=== PATIENT | female | born 1950 | race Caucasian/White ===

== ENCOUNTER 2024-04-09 09:51 | Inpatient (IN) | payer MEDICARE, MEDICAID ==
[~2024-04-09] VITALS: Ht 182.9 cm; Wt 140.0 kg
[2024-04-09] VITALS (11 sets, daily range): BP systolic 128–167; BP diastolic 43–54; PULSE 55–74; RESP 10–16; TEMP 96.3–97.8; O2SAT 94–98
[2024-04-09] MEDS ORDERED: mag hydrox/Alum hydrox/simeth 30ml oral suspension PO PRN (11:35)
[2024-04-09] MEDS ORDERED: magnesium sulf-water 2g/50mL 50 ML IV PRN (11:35)
[2024-04-09] MEDS ORDERED: potassium Cl 20 mEq SR tablet PO PRN ×2 (11:35)
[2024-04-09] MEDS ORDERED: magnesium Cl slow-release 64mg tablet PO PRN (11:35)
[2024-04-09] MEDS ORDERED: potassium Cl 40MEQ/1/2NS 520ml 520 ML IV PRN (11:35)
[2024-04-09] MEDS ORDERED: magnesium sulf-water 4G/100mL 100 ML IV PRN (11:35)
[2024-04-09] MEDS ORDERED: magnesium hydroxide 30ml (MOM) UD suspension PO PRN (11:35)
[2024-04-09] MEDS ORDERED: acetaminophen 325mg tablet PO PRN (11:35)
[2024-04-09 11:45] LABS: PRO BRAIN NATRIURETIC PEPTIDE 13940 PG/ML (0-125)
[2024-04-09 11:53] LABS: BILIRUBIN,URINE NEGATIVE (Neg); CLARITY,URINE TURBID (Clear); COLOR,URINE YELLOW (Yellow); GLUCOSE, URINE 100 mg/dl (Neg); KETONES,URINE NEGATIVE (Neg); LEUKOCYTE ESTERASE ,URINE MODERATE (Neg); NITRITES, URINE POSITIVE (Neg); OCCULT BLOOD,URINE LARGE (Neg); PROTEIN,URINE 100 mg/dl (Neg); UROBILINOGEN,URINE 0.2 E.U/dL (0.2-1.0)
[2024-04-09 12:13] LABS: ALANINE AMINOTRANSFERASE 12 U/L (12-78); ALBUMIN 3.1 G/DL (3.4-5.0); ALBUMIN/GLOBULIN RATIO 0.7 (1.1-1.5); ALKALINE PHOSPHATASE 63 IU/L (46-116); ANION GAP 9 (8-16); ASPARTATE AMINO TRANSFERASE 15 U/L (10-37); BILIRUBIN,TOTAL 0.4 MG/DL (0.1-1.0); BLOOD UREA NITROGEN 49 MG/DL (7-18); BUN/CREATININE RATIO 6.8 (10.0-20.0); CALCIUM 8.9 MG/DL (8.5-10.1); CHLORIDE 95 MMOL/L (99-107); CREATININE 7.25 MG/DL (0.40-0.90); GLUCOSE 213 MG/DL (70-104); POTASSIUM 4.6 MMOL/L (3.5-5.1); SODIUM 133 MMOL/L (135-145); TOTAL CARBON DIOXIDE 29.5 MMOL/L (24-32); TOTAL PROTEIN 7.6 G/DL (6.4-8.2); eCRCL 8 ML/MIN; eGFR 6 ML/MIN
[2024-04-09 12:13] LABS: UA COLLECTION TYPE STRAIGHT CATH
[2024-04-09 12:16] LABS: BACTERIA,URINE 2+ /HPF (Neg); RBC,URINE TNTC /HPF (0-2); WBC CLUMPS,URINE MANY /HPF (NEGATIVE); WBC,URINE TNTC /HPF (0-4)
[2024-04-09 12:18] LABS: SQUAMOUS EPITHELIAL CELL,UR NONE SEEN /LPF (FEW)
[2024-04-09 12:29] LABS: BASOPHILS % (AUTO) 0.5 % (0-1); EOSINOPHILS % (AUTO) 0.6 % (0-6); HEMATOCRIT 30.3 % (35.0-45.0); HEMOGLOBIN 9.9 g/dl (12.0-16.0); LYMPHOCYTES # (AUTO) 1.1 X10'3 (1.1-4.8); LYMPHOCYTES % (AUTO) 14.2 % (21-51); MEAN CORPUSCULAR HEMOGLOBIN 30.6 PG (27.0-31.0); MEAN CORPUSCULAR HGB CONC 32.6 g/dL (33.0-36.5); MEAN CORPUSCULAR VOLUME 93.8 FL (78-98); MONOCYTES # (AUTO) 0.7 X10'3 (0-0.9); MONOCYTES % (AUTO) 8.8 % (2-12); NEUTROPHILS # (AUTO) 5.9 X10'3 (1.8-7.7); NEUTROPHILS % (AUTO) 75.9 % (42-75); PLATELET COUNT 222 X10'3 (140-440); RED BLOOD COUNT 3.23 X10'6 (4.20-5.60); RED CELL DISTRIBUTION WIDTH 14.3 % (11.5-14.5); WHITE BLOOD COUNT 7.8 X10'3 (4.5-11.0)
[2024-04-09] MEDS ORDERED: glucagon, human recombinant 1mg kit SUBCUT PRN (13:00)
[2024-04-09] MEDS ORDERED: dextrose 50%-water 50ml dispensing syringe IV PRN ×2 (13:00)
[2024-04-09] MEDS ORDERED: DEXTROSE 15 GM of carb/4 tabs (each vial/BOTTLE has 4 tablets) PO PRN ×2 (13:00)
[2024-04-09 13:44] LABS: HEMOGLOBIN A1C 6.4 % (4.5-6.2)
[2024-04-09] MEDS ORDERED: vancomycin/NS 1 GM ADD-VANTAGE 250 ML X 1 DOSE IV PRN (14:15)
[2024-04-09] MEDS: cefepime 2g/NS 100ml ADVANTAGE 100 ML IV SCH (14:34)
[2024-04-09] MEDS ORDERED: PHO667C PO (14:55)
[2024-04-09] MEDS ORDERED: OMEP40CA21 PO (14:55)
[2024-04-09] MEDS ORDERED: LORA10TA7 PO (14:55)
[2024-04-09] MEDS ORDERED: SYN0.088T PO (14:55)
[2024-04-09] MEDS ORDERED: INSU100V12 SQ (14:55)
[2024-04-09] MEDS ORDERED: FOLI0.8T22 PO (14:55)
[2024-04-09] MEDS ORDERED: FURO-150 PO (14:55)
[2024-04-09] MEDS ORDERED: HYDR-3965 PO (14:55)
[2024-04-09] MEDS ORDERED: FOLI0.4T14 PO (14:55)
[2024-04-09] MEDS ORDERED: CETI10TA15 PO (14:55)
[2024-04-09] MEDS ORDERED: CRAN250C2 PO (14:55)
[2024-04-09] MEDS ORDERED: LIRA0.6P SUBCUT (14:55)
[2024-04-09] MEDS ORDERED: CITA20TA28 PO (14:55)
[2024-04-09] MEDS ORDERED: LEVO112C4 PO (14:55)
[2024-04-09] MEDS ORDERED: OMEG100037 PO (14:55)
[2024-04-09] MEDS ORDERED: ATOR40TA72 PO (14:55)
[2024-04-09] MEDS ORDERED: WARF1TAB83 PO (14:56)
[2024-04-09] MEDS ORDERED: albumin (human) 25% 100ml IV 100 ML IV PRN (15:25)
[2024-04-09] MEDS: INSULIN LISPRO 100 UNIT/ML INSULN.PEN MULTI-DOSE SQ SCH (17:00)
[2024-04-09] MEDS: heparin 1,000unit/ml 10ml vial 10 ML IV ONE (17:00)
[2024-04-09] MEDS: EPOETIN ALFA-EPBX 20,000 UNIT/ML 1 ML MDV IV ONE (17:01)
[2024-04-09] MEDS: heparin 1,000 units/ml 10ml inj IV ONE (17:01)
[2024-04-09] MEDS: K and/or MAG REPLACEMENT MC SCH (20:00)
[2024-04-09 21:57] LABS: % IRON SATURATION 16 % (11-46); IRON 31 UG/DL (49-151); TOTAL IRON BINDING CAPACITY 199 UG/DL (259-388)
[2024-04-09] MEDS: morphine 2 MG/ML inj. syringe IV PRN (22:01)
[2024-04-09] MEDS: docusate sod 100mg capsule PO SCH (22:03)
[2024-04-09] MEDS: insulin glargine (Lantus) pen - multi-dose SQ SCH (22:04)
[2024-04-10] VITALS (8 sets, daily range): BP systolic 120–155; BP diastolic 49–76; PULSE 76–83; RESP 14–18; TEMP 97–98.9; O2SAT 92–95
[2024-04-10] MEDS: VANCOMYCIN LEVEL IV SCH (04:00)
[2024-04-10 04:41] LABS: BASOPHILS # (AUTO) 0.1 X10'3 (0-0.2); BASOPHILS % (AUTO) 0.9 % (0-1); EOSINOPHILS # (AUTO) 0.2 X10'3 (0-0.9); EOSINOPHILS % (AUTO) 2.4 % (0-6); HEMATOCRIT 28.1 % (35.0-45.0); HEMOGLOBIN 9.4 g/dl (12.0-16.0); LYMPHOCYTES # (AUTO) 1.4 X10'3 (1.1-4.8); LYMPHOCYTES % (AUTO) 22.1 % (21-51); MEAN CORPUSCULAR HEMOGLOBIN 31.2 PG (27.0-31.0); MEAN CORPUSCULAR HGB CONC 33.4 g/dL (33.0-36.5); MEAN CORPUSCULAR VOLUME 93.4 FL (78-98); MEAN PLATELET VOLUME 8.1 FL (7.4-10.4); MONOCYTES # (AUTO) 0.6 X10'3 (0-0.9); MONOCYTES % (AUTO) 10.2 % (2-12); NEUTROPHILS # (AUTO) 4.1 X10'3 (1.8-7.7); NEUTROPHILS % (AUTO) 64.4 % (42-75); PLATELET COUNT 220 X10'3 (140-440); RED BLOOD COUNT 3.01 X10'6 (4.20-5.60); RED CELL DISTRIBUTION WIDTH 14.3 % (11.5-14.5); WHITE BLOOD COUNT 6.3 X10'3 (4.5-11.0)
[2024-04-10 04:46] LABS: ALANINE AMINOTRANSFERASE 11 U/L (12-78); ALBUMIN 2.6 G/DL (3.4-5.0); ALBUMIN/GLOBULIN RATIO 0.7 (1.1-1.5); ALKALINE PHOSPHATASE 52 IU/L (46-116); ANION GAP 7 (8-16); ASPARTATE AMINO TRANSFERASE 9 U/L (10-37); BILIRUBIN,TOTAL 0.3 MG/DL (0.1-1.0); BLOOD UREA NITROGEN 30 MG/DL (7-18); BUN/CREATININE RATIO 6.4 (10.0-20.0); CALCIUM 8.6 MG/DL (8.5-10.1); CHLORIDE 98 MMOL/L (99-107); GLUCOSE 176 MG/DL (70-104); MAGNESIUM 1.8 MG/DL (1.5-2.4); POTASSIUM 4.4 MMOL/L (3.5-5.1); SODIUM 135 MMOL/L (135-145); TOTAL CARBON DIOXIDE 29.7 MMOL/L (24-32); TOTAL PROTEIN 6.4 G/DL (6.4-8.2); VANCOMYCIN,RANDOM 7.7 ug/mL (20.0-30.0); eCRCL 12 ML/MIN; eGFR 9 ML/MIN
[2024-04-10] MEDS: vancomycin/NS 1 GM ADD-VANTAGE 250 ML X 1 DOSE IV ONE (06:03)
[2024-04-10] MEDS: vancomycin inj 500 MG in normal saline 100ml IV soln 100 ML IV SCH (09:38)
[2024-04-10] MEDS: ondansetron/PF 4mg/2ml inj IV PRN (16:47)
[2024-04-11] VITALS (12 sets, daily range): BP systolic 137–167; BP diastolic 52–71; PULSE 65–77; RESP 15–18; TEMP 97.9–98.4; O2SAT 95–98
[2024-04-11 06:06] LABS: BASOPHILS % (AUTO) 0.7 % (0-1); EOSINOPHILS # (AUTO) 0.3 X10'3 (0-0.9); EOSINOPHILS % (AUTO) 3.9 % (0-6); HEMOGLOBIN 9.3 g/dl (12.0-16.0); LYMPHOCYTES # (AUTO) 1.2 X10'3 (1.1-4.8); MEAN CORPUSCULAR HEMOGLOBIN 31.4 PG (27.0-31.0); MEAN CORPUSCULAR HGB CONC 33.3 g/dL (33.0-36.5); MEAN CORPUSCULAR VOLUME 94.3 FL (78-98); MEAN PLATELET VOLUME 8.4 FL (7.4-10.4); MONOCYTES # (AUTO) 0.6 X10'3 (0-0.9); MONOCYTES % (AUTO) 9.5 % (2-12); NEUTROPHILS # (AUTO) 4.4 X10'3 (1.8-7.7); NEUTROPHILS % (AUTO) 66.9 % (42-75); PLATELET COUNT 221 X10'3 (140-440); RED BLOOD COUNT 2.97 X10'6 (4.20-5.60); RED CELL DISTRIBUTION WIDTH 14.5 % (11.5-14.5); WHITE BLOOD COUNT 6.5 X10'3 (4.5-11.0)
[2024-04-11 06:16] LABS: ALANINE AMINOTRANSFERASE 16 U/L (12-78); ALBUMIN 2.4 G/DL (3.4-5.0); ALBUMIN/GLOBULIN RATIO 0.6 (1.1-1.5); ALKALINE PHOSPHATASE 49 IU/L (46-116); ANION GAP 9 (8-16); ASPARTATE AMINO TRANSFERASE 11 U/L (10-37); BILIRUBIN,TOTAL 0.3 MG/DL (0.1-1.0); BLOOD UREA NITROGEN 47 MG/DL (7-18); BUN/CREATININE RATIO 7.1 (10.0-20.0); CALCIUM 8.4 MG/DL (8.5-10.1); CHLORIDE 98 MMOL/L (99-107); CREATININE 6.58 MG/DL (0.40-0.90); GLUCOSE 199 MG/DL (70-104); MAGNESIUM 1.8 MG/DL (1.5-2.4); POTASSIUM 4.6 MMOL/L (3.5-5.1); SODIUM 132 MMOL/L (135-145); TOTAL CARBON DIOXIDE 24.7 MMOL/L (24-32); TOTAL PROTEIN 6.3 G/DL (6.4-8.2); eCRCL 9 ML/MIN; eGFR 6 ML/MIN
[2024-04-11] MEDS: cefTAZidime 1 GM/NS 100ML IVPB 100 ML IV SCH (07:35)
[2024-04-11] MEDS: EPOETIN ALFA-EPBX 20,000 UNIT/ML 1 ML MDV IV ONE (11:32)
[2024-04-11] MEDS: heparin 1,000unit/ml 10ml vial 10 ML IV ONE (11:34)
[2024-04-11] MEDS: heparin 1,000 units/ml 10ml inj IV ONE (11:40)
[2024-04-11 13:27] LABS: INR 1.8 INR; PROTHROMBIN TIME 18.4 SECONDS (9.0-12.0)
[2024-04-11] MEDS ORDERED: APIX5TAB3 PO (13:37)
[2024-04-12 05:23] LABS: HBSAG SCREEN Negative (Negative)
[2024-04-13] MEDS ORDERED: VANCOMYCIN LEVEL IV SCH (03:00)
== END 2024-04-11 16:31 | disposition home or self-care (01) | DRG 690 ==
LOC: ER 09:52 → ED HOLD 11:37 → PCU 3S 15:45
PROVIDERS: ADMIT Internal Medicine; ATTEND Internal Medicine
PROC: 5A1D70Z Performance of Urinary Filtration, Intermittent, Less than 6 Hours Per Day (ICD-10-PCS; principal; 2024-04-09)
PROC: 5A1D70Z Performance of Urinary Filtration, Intermittent, Less than 6 Hours Per Day (ICD-10-PCS; 2024-04-11)
DX: N10 Acute pyelonephritis (principal); Z68.41 Body mass index [BMI] 40.0-44.9, adult; N18.6 End stage renal disease; E11.22 Type 2 diabetes mellitus with diabetic chronic kidney disease; E11.21 Type 2 diabetes mellitus with diabetic nephropathy; E03.9 Hypothyroidism, unspecified; E78.5 Hyperlipidemia, unspecified; F32.A Depression, unspecified; K21.9 Gastro-esophageal reflux disease without esophagitis; E66.01 Morbid (severe) obesity due to excess calories; D63.8 Anemia in other chronic diseases classified elsewhere; Z88.1 Allergy status to other antibiotic agents; Z88.8 Allergy status to other drugs, medicaments and biological substances; Z86.718 Personal history of other venous thrombosis and embolism; Z99.2 Dependence on renal dialysis; Z85.048 Personal history of other malignant neoplasm of rectum, rectosigmoid junction, and anus; Z92.3 Personal history of irradiation
CPT/HCPCS: 36415; 80053; 80202; 81001; 82728; 82948; 83036; 83540; 83550; 83605; 83735; 83880; 84145; 84466; 85025; 85610; 87040; 87081; 87088; 87340; 97110; 97161; 97530; 99285; A4353; A6449; E1594; G0257; G0378; J0692; J0713; J1644; J1815; J2270; J2405; J3370; J7030; Q4081